=== PATIENT | male | born 1965 | race African-American/Black ===

== ENCOUNTER 2025-04-18 00:33 | Day surgery (SDC) | payer OTHER, SELFPAY ==
[2025-04-12 10:24] VITALS: BMI 36.8
--- OUTSIDE RECORDS SUMMARY | 2025-04-18 00:36 | XMS_ITS | Patient Health Record ---
Author Organization [facility] [employer] Address [address] [address] Care Team Providers Care Business Applications Specialist Name Role Phone Arya Simms Unavailable [phone] Reason For Referral No Information Medications Medication SIG (Take, Route, Frequency, Duration) Notes Start Date End Date Status hydroCHLOROthiazide 50 MG Tablet Oral Active ID Now COVID-19 Kit In Vitro *Reorder fro m Medispan for eRx and Interaction Alerts* Active amLODIPine Besylate 10 MG Tablet Oral Active Social History Social History Additional Details Category Social Info Options Details Migrated Social History Migrated Social History Tobacco Years: Never smoker 03/10/2022 Plan Of Treatment No Information Insurance Providers Payer Name Payer Address Payer Phone Subscriber Number Group Number Insured Name Patient Relationship to Insured Coverage Start Date Coverage End Date [facility] - [employer] [address] [place] [id number] THEODORA MCCLELLAN Self - patient is the insured [facility] - [employer] Management - [employer] [address] [place] [id number] THEODORA MCCLELLAN Self - patient is the insured
--- OUTSIDE RECORDS SUMMARY | 2025-04-18 00:37 | XMS_ITS | Data Portability ---
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 Name Role Phone BIANCA ADLER Primary Care Provider Assessment Encounter Date Assessment Date Assessment LastModified by Organization Details LastModified Time 12/30/2023 12/30/2023 Obesity education continue current therapy obtain cold record obesity education continue current therapy blood pressure controlled follow-up with me in 4 months obtain old records he believes he is up-to-date on screenings and immunizations old records will have to be reviewed by staff ankit Not available 12/31/2023 12:04:34 06/29/2024 06/29/2024 We will continue current therapies blood work is controlled healthy lifestyle care instructions walking 30 minutes 5 days a week at least he will see me back in 4 months we did have a colonoscopy at [facility] we will retrieve that as well as old records he refuses all immunizations Not available 06/30/2024 12:43:17 02/13/2025 02/13/2025 Continue current therapy healthy lifestyle care choices colonoscopies follow up 6 months Not available 02/13/2025 23:17:02 Plan of Treatment Reminders Order Date Submit Date Provider Last Modified By Organization Details Last Modified Time Details Appointments ANY 15 2024 01:15P Herlinda Adler MD Not available Not available Not available Lab PSA, total, serum or plasma 2023 024 [facility], [address], [address], [place], [address], 06/30/2024 08:24:54 CBC w/ auto diff 2023 024 [facility], [address] [place] [address], [address], [place], [address], 06/30/2024 08:24:53 CMP, serum or plasma 2023 024 [facility], [address] [place] [address], [address], [place], [address], 06/30/2024 08:24:52 lipid panel, serum 2023 024 [facility], [address] [place] [address], [address], [place], [address], 06/30/2024 08:24:50 Referral None recorded. Procedures None recorded. Surgeries None recorded. Imaging None recorded. Medication Orders amlodipin e 10 mg tablet 2023 024 [id number] [address], [place], [id number], 12/30/2023 12:42:27 Patient TargetsNo targets recorded. Patient Instructions Encounter Date Encounter Id Patient Instructions Last Modified By Organization Details Last Modified Time 12/30/2023 [id number] A healthy lifestyle: care instructions [email or web address] Not available 12/30/2023 12:42:27 06/29/2024 [id number] A healthy lifestyle: care instructions Not available 06/29/2024 13:34:55 02/13/2025 [id number] A healthy lifestyle: care instructions [email or web address] Not available 02/13/2025 17:56:18 Reason for Referral None Reported. Results Created Date Observation Date Name Description Value Unit Range Abnormal Flag Note LastModifiedBy Organization Detail LastModifiedTime 06/29/2006/30/2024 LIPID PANEL cholesterol, total 157 mg/dL 100-19 9 Not Available [facility] ([facility]) [address], [place], [address], 06/30/2024 08:24:50 06/29/20 24 06/30/2024 LIPID PANEL triglyceride s 92 mg/dL 0-149 Not Available [facility] ([facility]) [address], [place], [address], 06/30/2024 08:24:50 06/29/20 24 06/30/2024 LIPID PANEL HDL cholesterol 52 mg/dL >39 Not Available [facility] ([facility]) [address], [place], [address], 06/30/2024 08:24:50 06/29/20 24 06/30/2024 LIPID PANEL VLDL cholesterol francisco javier 17 mg/dL 5-40 Not Available [facility] ([facility]) [address], [place], [address], 06/30/2024 08:24:50 06/29/20 24 06/30/2024 LIPID PANEL LDL chol calc ([email or web address] 88 mg/dL 0-99 Not Available [facility] ([facility]) [address], [place], [address], 06/30/2024 08:24:50 06/29/20 24 06/30/2024 COMP. METAB OLIC PANEL (14) glucose 97 mg/dL 70-99 Not Available [facility] ([facility]) [address] [place], [address], 06/30/2024 08:24:52 06/29/20 24 06/30/2024 COMP. METAB OLIC PANEL (14) BUN 7 mg/dL 6-24 Not Available [facility] ([facility]) [address] [place], [address], 06/30/2024 08:24:52 06/29/20 24 06/30/2024 COMP. METAB OLIC PANEL (14) creatinine 0.92 mg/dL 0.76-1 .27 Not Available [facility] ([facility]) [address], [place], [address], 06/30/2024 08:24:52 06/29/20 24 06/30/2024 COMP. METAB OLIC PANEL (14) eGFR 96 mL/mi n/1.7 3 >59 Not Available [facility] ([facility]) [address], [place], [address], 06/30/2024 08:24:52 06/29/20 24 06/30/2024 COMP. METAB OLIC PANEL (14) BUN/creatini ne ratio 8 9-20 below low normal Not Available [facility] ([facility]) [address], [place], [address], 06/30/2024 08:24:52 06/29/20 24 06/30/2024 COMP. METAB OLIC PANEL (14) sodium 139 mmol/ L 134-14 4 Not Available [facility] ([facility]) [address], [place], [address], 06/30/2024 08:24:52 06/29/20 24 06/30/2024 COMP. METAB OLIC PANEL (14) potassium 4.1 mmol/ L 3.5-5. 2 Not Available [facility] ([facility]) [address], [place], [address], 06/30/2024 08:24:52 06/29/20 24 06/30/2024 COMP. METAB OLIC PANEL (14) chloride 98 mmol/ L 96-106 Not Available [facility] ([facility]) [address] [place], [address], 06/30/2024 08:24:52 06/29/20 24 06/30/2024 COMP. METAB OLIC PANEL (14) carbon dioxide, total 26 mmol/ L 20-29 Not Available [facility] ([facility]) [address] [place], [address], 06/30/2024 08:24:52 06/29/20 24 06/30/2024 COMP. METAB OLIC PANEL (14) calcium 9.0 mg/dL 8.7-10 .2 Not Available [facility] ([facility]) [address], [place], [address], 06/30/2024 08:24:52 06/29/20 24 06/30/2024 COMP. METAB OLIC PANEL (14) protein, total 7.7 g/dL 6.0-8. 5 Not Available [facility] ([facility]) [address] [place], [address], 06/30/2024 08:24:52 06/29/20 24 06/30/2024 COMP. METAB OLIC PANEL (14) albumin 4.4 g/dL 3.8-4. 9 Not Available [facility] ([facility]) [address], [place], [address], 06/30/2024 08:24:52 06/29/20 24 06/30/2024 COMP. METAB OLIC PANEL (14) globulin, total 3.3 g/dL 1.5-4. 5 Not Available [facility] ([facility]) [address], [place], [address], 06/30/2024 08:24:52 06/29/20 24 06/30/2024 COMP. METAB OLIC PANEL (14) bilirubin, total 0.7 mg/dL 0.0-1. 2 Not Available [facility] ([facility]) [address] [place], [address], 06/30/2024 08:24:52 06/29/20 24 06/30/2024 COMP. METAB OLIC PANEL (14) alkaline phosphatase 93 IU/L 44-121 Not Available [facility] ([facility]) [address] [place], [address], 06/30/2024 08:24:52 06/29/20 24 06/30/2024 COMP. METAB OLIC PANEL (14) AST (SGOT) 28 IU/L 0-40 Not Available [facility] ([facility]) [address] [place], [address], 06/30/2024 08:24:52 06/29/20 24 06/30/2024 COMP. METAB OLIC PANEL (14) ALT (SGPT) 23 IU/L 0-44 Not Available [facility] ([facility]) [address], [place], [address], 06/30/2024 08:24:52 06/29/20 24 06/30/2024 CBC WITH DIFFE RENTI AL/PL ATELE T WBC 6.2 x10e3 /uL 3.4-10 .8 Not Available [facility] ([facility]) [address], [place], [address], 06/30/2024 08:24:53 06/29/20 24 06/30/2024 CBC WITH DIFFE RENTI AL/PL ATELE T RBC 5.37 x10e6 /uL 4.14-5 .80 Not Available [facility] ([facility]) [address], [place], [address], 06/30/2024 08:24:53 06/29/20 24 06/30/2024 CBC WITH DIFFE RENTI AL/PL ATELE T hemoglobin 14.7 g/dL 13.0-1 7.7 Not Available [facility] ([facility]) [address] [place], [address], 06/30/2024 08:24:53 06/29/20 24 06/30/2024 CBC WITH DIFFE RENTI AL/PL ATELE T hematocrit 45.5 % 37.5-5 1.0 Not Available [facility] ([facility]) [address], [place], [address], 06/30/2024 08:24:53 06/29/20 24 06/30/2024 CBC WITH DIFFE RENTI AL/PL ATELE T MCV 85 fL 79-97 Not Available [facility] ([facility]) [address], [place], [address], 06/30/2024 08:24:53 06/29/20 24 06/30/2024 CBC WITH DIFFE RENTI AL/PL ATELE T MCH 27.4 pg 26.6-3 3.0 Not Available [facility] ([facility]) [address], [place], [address], 06/30/2024 08:24:53 06/29/20 24 06/30/2024 CBC WITH DIFFE RENTI AL/PL ATELE T MCHC 32.3 g/dL 31.5-3 5.7 Not Available [facility] ([facility]) [address], [place], [address], 06/30/2024 08:24:53 06/29/20 24 06/30/2024 CBC WITH DIFFE RENTI AL/PL ATELE T RDW 11.8 % 11.6-1 5.4 Not Available [facility] ([facility]) [address], [place], [address], 06/30/2024 08:24:53 06/29/20 24 06/30/2024 CBC WITH DIFFE RENTI AL/PL ATELE T platelets 274 x10e3 /uL 150-45 0 Not Available [facility] ([facility]) [address], [place], [address], 06/30/2024 08:24:53 06/29/20 24 06/30/2024 CBC WITH DIFFE RENTI AL/PL ATELE T neutrophils 50 % notest ab. Not Available [facility] ([facility]) [address], [place], [address], 06/30/2024 08:24:53 06/29/20 24 06/30/2024 CBC WITH DIFFE RENTI AL/PL ATELE T lymphs 40 % notest ab. Not Available [facility] ([facility]) [address], [place], [address], 06/30/2024 08:24:53 06/29/20 24 06/30/2024 CBC WITH DIFFE RENTI AL/PL ATELE T monocytes 7 % notest ab. Not Available [facility] ([facility]) [address], [place], [address], 06/30/2024 08:24:53 06/29/20 24 06/30/2024 CBC WITH DIFFE RENTI AL/PL ATELE T eos 2 % notest ab. Not Available [facility] ([facility]) [address], [place], [address], 06/30/2024 08:24:53 06/29/20 24 06/30/2024 CBC WITH DIFFE RENTI AL/PL ATELE T basos 1 % notest ab. Not Available [facility] ([facility]) [address], [place], [address], 06/30/2024 08:24:53 06/29/20 24 06/30/2024 CBC WITH DIFFE RENTI AL/PL ATELE T neutrophils (absolute) 3.1 x10e3 /uL 1.4-7. 0 Not Available [facility] ([facility]) [address], [place], [address], 06/30/2024 08:24:53 06/29/20 24 06/30/2024 CBC WITH DIFFE RENTI AL/PL ATELE T lymphs (absolute) 2.5 x10e3 /uL 0.7-3. 1 Not Available [facility] ([facility]) [address], [place], [address], 06/30/2024 08:24:53 06/29/20 24 06/30/2024 CBC WITH DIFFE RENTI AL/PL ATELE T monocytes(ab solute) 0.5 x10e3 /uL 0.1-0. 9 Not Available [facility] ([facility]) [address] [place], [address], 06/30/2024 08:24:53 06/29/20 24 06/30/2024 CBC WITH DIFFE RENTI AL/PL ATELE T eos (absolute) 0.1 x10e3 /uL 0.0-0. 4 Not Available [facility] ([facility]) [address] [place], [address], 06/30/2024 08:24:53 06/29/20 24 06/30/2024 CBC WITH DIFFE RENTI AL/PL ATELE T baso (absolute) 0.0 x10e3 /uL 0.0-0. 2 Not Available [facility] ([facility]) [address] [place], [address], 06/30/2024 08:24:53 06/29/20 24 06/30/2024 CBC WITH DIFFE RENTI AL/PL ATELE T immature granulocytes 0 % notest ab. Not Available [facility] ([facility]) [address] [place], [address], 06/30/2024 08:24:53 06/29/20 24 06/30/2024 CBC WITH DIFFE RENTI AL/PL ATELE T immature grans (abs) 0.0 x10e3 /uL 0.0-0. 1 Not Available [facility] ([facility]) [address] [place], [address], 06/30/2024 08:24:53 06/29/20 24 06/30/2024 PROST ATE-S PECIF IC AG prostate specific Ag 1.1 NG/mL 0.0-4. 0 Raffy ECLIA metho dolog y. Accor ding to the Ameri can [employer] iatio n, Serum PSA shoul d decre ase and remai n at undet ectab le level s after radic al prost atect hiwot. The AUA defin es bioch emica l recur rence as an initi al PSA value 0.2 ng/mL or great er follo wed by a subse quent confi rmato ry PSA value 0.2 ng/mL or great er. Value s obtai wood with diffe rent assay metho ds or kits canno t be used inter marie eably . Resul ts canno t be inter prete d as absol patrice evide nce of the prese nce or absen ce of dylan ho se. Not Available [facility] ([facility]) [address], [place], [address], 06/30/2024 08:24:54 01/26/2001/26/2025 CBC W Order ed Manua l Diffe renti al panel - Blood leukocytes [#/volume] in blood by automated count 5.3 text: 3.8 - 10.8 thousa nd/uL Not Available Not Available 02/12/2025 17:45:58 01/26/20 25 01/26/2025 CBC W Order ed Manua l Diffe renti al panel - Blood erythrocytes [#/volume] in blood by automated count 5.06 text: 4.20 - 5.80 millio n/uL Not Available Not Available 02/12/2025 17:45:58 01/26/20 25 01/26/2025 CBC W Order ed Manua l Diffe renti al panel - Blood hemoglobin [mass/volume ] in blood 13.4 g/dL low: 13.2g/ dLhigh : 17.1g/ dL Not Available Not Available 02/12/2025 17:45:58 01/26/20 25 01/26/2025 CBC W Order ed Manua l Diffe renti al panel - Blood hematocrit [volume fraction] of blood by automated count 44.4 % low: 38.5%h igh: 50% Not Available Not Available 02/12/2025 17:45:58 01/26/20 25 01/26/2025 CBC W Order ed Manua l Diffe renti al panel - Blood MCV [entitic mean volume] in red blood cells by automated count 87.7 fL low: 80fLhi gh: 100fL Not Available Not Available 02/12/2025 17:45:58 01/26/20 25 01/26/2025 CBC W Order ed Manua l Diffe renti al panel - Blood MCH [entitic mass] by automated count 26.5 pg low: 27pghi gh: 33pg low Not Available Not Available 02/12/2025 17:45:58 01/26/20 25 01/26/2025 CBC W Order ed Manua l Diffe renti al panel - Blood MCHC [entitic mass/volume] in red blood cells by automated count 30.2 g/dL low: 32g/dL high: 36g/dL low For adult s, a sligh t decre ase in the calcu lated MCHC value (in the range of 30 to 32 g/dL) is most likel y not clini colin signi ficnarda t; lore er, it shoul d be inter prete d with cauti on in corre latio n with other red cell jackie eters and the patie nt's clini francisco javier condi tion. Not Available Not Available 02/12/2025 17:45:58 01/26/20 25 01/26/2025 CBC W Order ed Lauraa l Diffe renti al panel - Blood erythrocyte [distwidth] in red blood cells by automated count 12.7 % low: 11%hig h: 15% Not Available Not Available 02/12/2025 17:45:58 01/26/20 25 01/26/2025 CBC W Order ed Lauraa l Diffe renti al panel - Blood platelets [#/volume] in blood by automated count 147 text: 140 - 400 thousa nd/uL Not Available Not Available 02/12/2025 17:45:58 01/26/20 25 01/26/2025 CBC W Order ed Manua l Diffe renti al panel - Blood platelet [entitic mean volume] in blood by kelle 11.6 fL low: 7.5fLh igh: 12.5fL Not Available Not Available 02/12/2025 17:45:58 01/26/20 25 01/26/2025 CBC W Order ed Manua l Diffe renti al panel - Blood neutrophils [#/volume] in blood by automated count 2343 text: 1,500 - 7,800 cells/ uL Not Available Not Available 02/12/2025 17:45:58 01/26/20 25 01/26/2025 CBC W Order ed Manua l Diffe renti al panel - Blood lymphocytes [#/volume] in blood by automated count 2438 text: 850 - 3,900 cells/ uL Not Available Not Available 02/12/2025 17:45:58 01/26/20 25 01/26/2025 CBC W Order ed Manua l Diffe renti al panel - Blood monocytes [#/volume] in blood by automated count 429 text: 200 - 950 cells/ uL Not Available Not Available 02/12/2025 17:45:58 01/26/20 25 01/26/2025 CBC W Order ed Manua l Diffe renti al panel - Blood eosinophils [#/volume] in blood by automated count 48 text: 15 - 500 cells/ uL Not Available Not Available 02/12/2025 17:45:58 01/26/20 25 01/26/2025 CBC W Order ed Manua l Diffe renti al panel - Blood basophils [#/volume] in blood by automated count 42 text: 0 - 200 cells/ uL Not Available Not Available 02/12/2025 17:45:58 01/26/20 25 01/26/2025 CBC W Order ed Manua l Diffe renti al panel - Blood neutrophils/ leukocytes in blood by automated count 44.2 % Not Available Not Available 01/16 17:45:58 01/26/20 25 01/26/2025 CBC W Order ed Manua l Diffe renti al panel - Blood lymphocytes/ leukocytes in blood by automated count 46 % Not Available Not Available 01/16 17:45:58 01/26/20 25 01/26/2025 CBC W Order ed Manua l Diffe renti al panel - Blood monocytes/le ukocytes in blood by automated count 8.1 % Not Available Not Available 01/16 17:45:58 01/26/20 25 01/26/2025 CBC W Order ed Manua l Diffe renti al panel - Blood eosinophils/ leukocytes in blood by automated count 0.9 % Not Available Not Available 01/16 17:45:58 01/26/20 25 01/26/2025 CBC W Order ed Manua l Diffe renti al panel - Blood basophils/le ukocytes in blood by automated count 0.8 % [facility] [id number] [place] [address] Savi Sindhu Kumar Vo Not Available Not Available 02/12/2025 17:45:58 01/26/20 25 01/26/2025 CBC W Order ed Becky antonio al panel - Blood interpretati on and review of laboratory results Abnorm al Not Available Not Available 17:45:58 01/26/20 25 01/26/2025 Compr ehens sari metab olic 1999 panel - Serum or Plasm a glucose [mass/volume ] in serum or plasma 103 mg/dL low: 65mg/d Lhigh: 99mg/d L high Fasti ng refer ence inter noa For someo ne witho ut known diabe rola, a gluco se value betwe en 100 and 125 mg/dL is consi stent with predi abete s and shoul d be confi rmed with a follo w-up test. Not Available Not Available 02/12/2025 17:45:58 01/26/20 25 01/26/2025 Compr ehens sari metab olic 2000 panel - Serum or Plasm a urea nitrogen [mass/volume ] in serum or plasma 11 mg/dL low: 7mg/dL high: 25mg/d L Not Available Not Available 02/12/2025 17:45:58 01/26/20 25 01/26/2025 Compr ehens sari metab olic 2000 panel - Serum or Plasm a creatinine [mass/volume ] in serum or plasma 0.99 mg/dL low: 0.7mg/ dLhigh : 1.3mg/ dL Not Available Not Available 02/12/2025 17:45:58 01/26/20 25 01/26/2025 Compr ehens sari metab olic 2000 panel - Serum or Plasm a glomerular filtration rate [volume rate/area] in serum, plasma or blood by creatinine-b ased formula (CKD-epi 2020)/1.73 sq M 88 text: > or = 60 mL/min /1.73m 2 Not Available Not Available 02/12/2025 17:45:58 01/26/20 25 01/26/2025 Compr ehens sari metab olic 1999 panel - Serum or Plasm a urea nitrogen/cre atinine [mass ratio] in serum or plasma SEE NOTE: text: (calc) Not Repor cary: BUN and Creat inine are withi n refer ence range . Not Available Not Available 02/12/2025 17:45:58 01/26/20 25 01/26/2025 Compr ehens sari metab olic 1999 panel - Serum or Plasm a sodium [moles/volum e] in serum or plasma 136 mmol/ L low: 135mmo l/Lhig h: 146mmo l/L Not Available Not Available 02/12/2025 17:45:58 01/26/20 25 01/26/2025 Compr ehens sari metab olic 1999 panel - Serum or Plasm a potassium [moles/volum e] in serum or plasma 4 mmol/ L low: 3.5mmo l/Lhig h: 5.3mmo l/L Not Available Not Available 02/12/2025 17:45:58 01/26/20 25 01/26/2025 Compr ehens sari metab olic 2000 panel - Serum or Plasm a chloride [moles/volum e] in serum or plasma 96 mmol/ L low: 98mmol /Lhigh : 110mmo l/L low Not Available Not Available 02/12/2025 17:45:58 01/26/20 25 01/26/2025 Compr ehens sari metab olic 1999 panel - Serum or Plasm a carbon dioxide, total [moles/volum e] in serum or plasma 34 mmol/ L low: 20mmol /Lhigh : 32mmol /L high Not Available Not Available 02/12/2025 17:45:58 01/26/20 25 01/26/2025 Compr ehens sari metab olic 2000 panel - Serum or Plasm a calcium [mass/volume ] in serum or plasma 9.2 mg/dL low: 8.6mg/ dLhigh : 10.3mg /dL Not Available Not Available 02/12/2025 17:45:58 01/26/20 25 01/26/2025 Compr ehens sari metab olic 2000 panel - Serum or Plasm a protein [mass/volume ] in serum or plasma 7.6 g/dL low: 6.1g/d Lhigh: 8.1g/d L Not Available Not Available 02/12/2025 17:45:58 01/26/20 25 01/26/2025 [facility] 1999 panel - Serum or Plasm a albumin [mass/volume ] in serum or plasma 4.3 g/dL low: 3.6g/d Lhigh: 5.1g/d L Not Available Not Available 02/12/2025 17:45:58 01/26/20 25 01/26/2025 [facility] 1999 panel - Serum or Plasm a globulin [mass/volume ] in serum by calculation 3.3 text: 1.9 - 3.7 g/dL (calc) Not Available Not Available 02/12/2025 17:45:58 01/26/20 25 01/26/2025 [facility] 1999 panel - Serum or Plasm a albumin/glob ulin [mass ratio] in serum or plasma 1.3 text: 1.0 - 2.5 (calc) Not Available Not Available 02/12/2025 17:45:58 01/26/20 25 01/26/2025 [facility] 1999 panel - Serum or Plasm a bilirubin.to colette [mass/volume ] in serum or plasma 0.8 mg/dL low: 0.2mg/ dLhigh : 1.2mg/ dL Not Available Not Available 02/12/2025 17:45:58 01/26/20 25 01/26/2025 [facility] 1999 panel - Serum or Plasm a alkaline phosphatase [enzymatic activity/vol ume] in serum or plasma 74 U/L low: 35U/Lh igh: 144U/L Not Available Not Available 02/12/2025 17:45:58 01/26/20 25 01/26/2025 [facility] 1999 panel - Serum or Plasm a aspartate aminotransfe rase [enzymatic activity/vol ume] in serum or plasma 24 U/L low: 10U/Lh igh: 35U/L Not Available Not Available 02/12/2025 17:45:58 01/26/20 25 01/26/2025 Compr ehens sari metab olic 2000 panel - Serum or Plasm a alanine aminotransfe rase [enzymatic activity/vol ume] in serum or plasma 24 U/L low: 9U/Lhi gh: 46U/L [facility] [id number] [place] [address] [facility] Vo Not Available Not Available 02/12/2025 17:45:58 01/26/20 25 01/26/2025 Compr ehens sari metab olic 2000 panel - Serum or Plasm a interpretati on and review of laboratory results Abnorm al Not Available Not Available 17:45:58 01/27/20 25 01/26/2025 Compr ehens sari metab olic 1999 panel - Serum or Plasm a glucose [mass/volume ] in serum or plasma 103 mg/dL low: 65mg/d Lhigh: 99mg/d L high Not Available Not Available 02/12/2025 17:43:45 01/27/20 25 01/26/2025 Compr ehens sari metab olic 2000 panel - Serum or Plasm a urea nitrogen [mass/volume ] in serum or plasma 11 mg/dL low: 7mg/dL high: 25mg/d L Not Available Not Available 02/12/2025 17:43:45 01/27/20 25 01/26/2025 Compr ehens sari metab olic 2000 panel - Serum or Plasm a creatinine [mass/volume ] in serum or plasma 0.99 mg/dL low: 0.7mg/ dLhigh : 1.3mg/ dL Not Available Not Available 02/12/2025 17:43:45 01/27/20 25 01/26/2025 Compr ehens sari metab olic 2000 panel - Serum or Plasm a urea nitrogen/cre atinine [mass ratio] in serum or plasma SEE NOTE: text: see_co mment [Auto mated messa ge] The syste m which gener ated this resul t trans mitte d refer ence range : > OR = 60 mL/mi n/1.7 3m2. The refer ence range was not used to inter pret this resul t as yvonne l/abn ormal . Not Available Not Available 02/12/2025 17:43:45 01/27/20 25 01/26/2025 Compr ehens sari metab olic 1999 panel - Serum or Plasm a sodium [moles/volum e] in serum or plasma 136 mmol/ L low: 135mmo l/Lhig h: 146mmo l/L Not Available Not Available 02/12/2025 17:43:45 01/27/20 25 01/26/2025 Compr ehens sari metab olic 1999 panel - Serum or Plasm a potassium [moles/volum e] in serum or plasma 4 mmol/ L low: 3.5mmo l/Lhig h: 5.3mmo l/L Not Available Not Available 02/12/2025 17:43:45 01/27/20 25 01/26/2025 Compr ehens sari metab olic 1999 panel - Serum or Plasm a chloride [moles/volum e] in serum or plasma 96 mmol/ L low: 98mmol /Lhigh : 110mmo l/L low Not Available Not Available 02/12/2025 17:43:45 01/27/20 25 01/26/2025 Compr ehens sari metab olic 1999 panel - Serum or Plasm a carbon dioxide, total [moles/volum e] in serum or plasma 34 mmol/ L low: 20mmol /Lhigh : 32mmol /L high Not Available Not Available 02/12/2025 17:43:45 01/27/20 25 01/26/2025 Compr ens sari metab olic 1999 panel - Serum or Plasm a calcium [mass/volume ] in serum or plasma 9.2 mg/dL low: 8.6mg/ dLhigh : 10.3mg /dL Not Available Not Available 02/12/2025 17:43:45 01/27/20 25 01/26/2025 Compr ehens sari metab olic 1999 panel - Serum or Plasm a protein [mass/volume ] in serum or plasma 7.6 g/dL low: 6.1g/d Lhigh: 8.1g/d L Not Available Not Available 02/12/2025 17:43:45 01/27/20 25 01/26/2025 Compr ehens sari metab olic 1999 panel - Serum or Plasm a albumin [mass/volume ] in serum or plasma 4.3 g/dL low: 3.6g/d Lhigh: 5.1g/d L Not Available Not Available 02/12/2025 17:43:45 01/27/20 25 01/26/[facility] - Serum or Plasm a bilirubin.to colette [mass/volume ] in serum or plasma 0.8 mg/dL low: 0.2mg/ dLhigh : 1.2mg/ dL Not Available Not Available 02/12/2025 17:43:45 01/27/20 25 01/26/2025 [facility] - Serum or Plasm a alkaline phosphatase [enzymatic activity/vol ume] in serum or plasma 74 U/L low: 35U/Lh igh: 144U/L Not Available Not Available 02/12/2025 17:43:45 01/27/20 25 01/26/2025 [facility] - Serum or Plasm a aspartate aminotransfe rase [enzymatic activity/vol ume] in serum or plasma 24 U/L low: 10U/Lh igh: 35U/L Not Available Not Available 02/12/2025 17:43:45 01/27/20 25 01/26/2025 [facility] ehens sari metab olic 2000 panel - Serum or Plasm a alanine aminotransfe rase [enzymatic activity/vol ume] in serum or plasma 24 U/L low: 9U/Lhi gh: 46U/L Not Available Not Available 02/12/2025 17:43:45 01/27/20 25 01/26/2025 [facility] - Serum or Plasm a interpretati on and review of laboratory results Abnorm al Not Available Not Available 17:43:45 01/27/20 25 01/26/2025 CBC W Order ed Becky antonio al panel - Blood hemoglobin [mass/volume ] in blood 13.4 g/dL low: 13.2g/ dLhigh : 17.1g/ dL Not Available Not Available 02/12/2025 17:43:46 01/27/20 25 01/26/2025 CBC W Order ed Becky antonio al panel - Blood hematocrit [volume fraction] of blood by automated count 44.4 % low: 38.5%h igh: 50% Not Available Not Available 02/12/2025 17:43:46 01/27/20 25 01/26/2025 CBC W Order ed Manua l Diffe renti al panel - Blood MCV [entitic mean volume] in red blood cells by automated count 87.7 fL low: 80fLhi gh: 100fL Not Available Not Available 02/12/2025 17:43:46 01/27/20 25 01/26/2025 CBC W Order ed Manua l Diffe renti al panel - Blood MCH [entitic mass] by automated count 26.5 pg low: 27pghi gh: 33pg low Not Available Not Available 02/12/2025 17:43:46 01/27/20 25 01/26/2025 CBC W Order ed Manua l Diffe renti al panel - Blood MCHC [entitic mass/volume] in red blood cells by automated count 30.2 g/dL low: 32g/dL high: 36g/dL low Not Available Not Available 02/12/2025 17:43:46 01/27/20 25 01/26/2025 CBC W Order ed Manua l Diffe renti al panel - Blood erythrocyte [distwidth] in red blood cells by automated count 12.7 % low: 11%hig h: 15% Not Available Not Available 02/12/2025 17:43:46 01/27/20 25 01/26/2025 CBC W Order ed Manua l Diffe renti al panel - Blood platelet [entitic mean volume] in blood by kelle 11.6 fL low: 7.5fLh igh: 12.5fL Not Available Not Available 02/12/2025 17:43:46 01/27/20 25 01/26/2025 CBC W Order ed Manua l Diffe renti al panel - Blood neutrophils/ leukocytes in blood by automated count 44.2 % Not Available Not Available 01/16 17:43:46 01/27/20 25 01/26/2025 CBC W Order ed Manua l Diffe renti al panel - Blood lymphocytes/ leukocytes in blood by automated count 46 % Not Available Not Available 01/16 17:43:46 01/27/20 25 01/26/2025 CBC W Order ed Manua l Diffe renti al panel - Blood monocytes/le ukocytes in blood by automated count 8.1 % Not Available Not Available 01/16 17:43:46 01/27/20 25 01/26/2025 CBC W Order ed Becky antonio al panel - Blood eosinophils/ leukocytes in blood by automated count 0.9 % Not Available Not Available 01/16 17:43:46 01/27/20 25 01/26/2025 CBC W Order ed Lauraa jazz Marroquine marisela al panel - Blood basophils/le ukocytes in blood by automated count 0.8 % Not Available Not Available 01/16 17:43:46 01/27/20 25 01/26/2025 CBC W Order ed Lauraa jazz Marroquine kellenti al panel - Blood interpretati on and review of laboratory results Abnorm al Not Available Not Available 17:43:46 Result Notes None recorded. Problems Name Problem SNOMED Code Status Onset Date Resolution Date Notes Provider Name and Address Organization Details Recorded Time Essential hypertensio n 48919520 Active 2023 Cindy Otero MA null, [place] - [facility] 4 12:25:06 Obesity 095956347 Active 2023 Bianca Adler MD Attn: Roslyn munguia,[address] [place], [address], [place] - [facility] 4 12:04:34 Hyperlipide katie 74663084 Active 2023 Bianca Adler MD Attn: Roslyn munguia,[address] [place], [address], [place] [facility] 4 12:04:35 HIV screening declined 9159751646953 00 Active 2023 Bianca Adler MD Attn: Roslyn munguia,[address] [place], [address], [place] [facility] 4 12:43:06 Tetanus vaccination declined by patient 629366452 Active 2023 Bianca Adler MD Attn: Roslyn munguia,[address] [place], [address], [place] - [facility] 4 12:43:07 Pneumococca l vaccination declined 433985737 Active 2023 Bianca Adler MD Attn: Roslyn munguia,[address] [facility], [place], [address], [facility] - [facility] 4 12:43:07 SARS-CoV-2 vaccination declined 9423999270 Active 2023 Bianca Adler MD Attn: Roslyn munguia,[address] [facility], [place], [address], [facility] - [facility] 4 12:43:08 Influenza vaccination declined 733012000 Active 2023 Bianca Adler MD Attn: Roslyn munguia,[address] [facility], [place], [address], [facility] - [facility] 4 12:43:11 Problem Notes None recorded. Procedures Surgical History Date Name Laterality Status Provider Name and Address Organization Details Recorded Time Pacemaker completed Agata Duarte MA [place] - [facility] 12/30/2023 11:50:21 Imaging Results None recorded. Procedure Notes None recorded. Medical Equipment None Reported. Allergies No known drug allergies Medications Name Sig Start Date Stop Date Status Note LastModified by Organization Details LastModified Time cyclobenzapr ine 10 mg tablet TAKE 1 TABLET BY MOUTH EVERY 8 HOURS NEEDED 12/29 completed Not Available Not Available Not Available amoxicillin 500 mg capsule TAKE 1 CAPSULE BY MOUTH THREE TIMES DAILY FOR 7 DAYS 12/29 completed Not Available Not Available Not Available atorvastatin 10 mg tablet TAKE 1 TABLET BY MOUTH EVERY DAY active Not Available Not Available No t Available azithromycin 250 mg tablet TAKE 2 TABLETS (500 MG) BY ORAL ROUTE ONCE DAILY FOR 1 DAY THEN 1 TABLET (250 MG) BY ORAL ROUTE ONCE DAILY FOR 4 DAYS 06/29 completed Not Available Not Available Not Available hydrochlorot hiazide 50 mg tablet Take 1 tablet every day by oral route. active Not Available Not Available No t Available tramadol 50 mg tablet TAKE 1 TABLET BY MOUTH EVERY 6 HOURS NEEDED 12/29 completed Not Available Not Available Not Available amlodipine 10 mg tablet Take 1 tablet every day by oral route. 2024 active Not Available Not Available Not Avai lable ibuprofen 600 mg tablet TAKE 1 TABLET BY MOUTH EVERY 6 HOURS NEEDED FOR PAIN CONTROL WITH FOOD 12/29 completed Not Available Not Available Not Available naproxen 500 mg tablet TAKE 1 TABLET BY MOUTH TWICE DAILY WITH FOOD 12/29 completed Not Available Not Available Not Available multivitamin 2 Tablets Daily active Not Available Not Available No t Available Vitals Date Recorded Body height Body mass index (BMI) Body weight Heart rate Oxygen saturation Oxygen saturation in Arterial blood by Pulse oximetry Systolic And Diastolic Provider Name and Address Organization Details Last Updated DateTime 4 180.34 cm 36.4 kg/m2 970102. 89 g 84 /min 97 % 97 % 134/82 mm[Hg] Agata Duarte MA [facility] 4 11:49:16 Date Recorded Body height Body mass index (BMI) Body weight Heart rate Oxygen saturation Oxygen saturation in Arterial blood by Pulse oximetry Systolic And Diastolic Provider Name and Address Organization Details Last Updated DateTime 5 180.34 cm 35.6 kg/m2 970974. 49 g 61 /min 97 % 97 % 130/68 mm[Hg] [facility] 5 14:08:33 Date Recorded Body height Body mass index (BMI) Body weight Heart rate Oxygen saturation Oxygen saturation in Arterial blood by Pulse oximetry Systolic And Diastolic Provider Name and Address Organization Details Last Updated DateTime 4 180.34 cm 36.8 kg/m2 473481. 39 g 82 /min 95 % 95 % 120/82 mm[Hg] Lizz Villegas [facility] 4 11:52:44 Social History Question Answer Notes LastModified by Organizat ion Details LastModified Time Tobacco Smoking Status Never Smoker Agata Duarte MA [facility] 12/30/2023 11:45:31 Do You Have An Advance Directive? No Information n ot available 06/29/2024 Are You Blind Or Do You Have Difficulty Seeing? No Information n ot available 12/30/2023 In The 14 Days Before Symptom Onset, Have You Had Close Contact With A Laboratory-confirm ed COVID-19 While That Case Was Ill? No Information n ot available 06/29/2024 In The 14 Days Before Symptom Onset, Have You Had Close Contact With A Person Who Is Under Investigation For COVID-19 While That Person Was Ill? No Information not available 06/29/2024 Have You Been To An Area Known To Be High Risk For COVID-19? No Information not available 06/29/2024 Are You Deaf Or Do You Have Serious Difficulty Hearing? No Information not available 12/30/2023 Are There Any Guns Present In Your Home? No Information not available 06/29/2024 What Was The Date Of Your Most Recent Tobacco Screening? 02/13/2025 Information not available 02/13/2025 What Is Your Relationship Status? Information not available 12/30/2023 Do You Use Your Seat Belt Or Car Seat Routinely? Yes Information not available 06/29/2024 Do You Have Smoke And Carbon Monoxide Detectors In Your Home? Yes Information not available 06/29/2024 Do You Use Sunscreen Routinely? No Information not available 06/29/2024 Has Tobacco Cessation Counseling Been Provided? No Information not available 02/13/2025 Sex: Male Functional Status Question Answer Note LastModified by Organizat ion Details LastModified Time Do you use any illicit or recreational drugs? No Information not available 06/29/2024 Do you or have you ever used any other forms of tobacco or nicotine? No Information not available 02/13/2025 What is your level of alcohol consumption? None Information not available 12/30/2023 Are you able to care for yourself independently? Yes Information not available 12/30/2023 Mental Status None recorded. Family History Relationship Description Onset Age of this Age Resolved Age Notes LastModified by Organization Details LastModified Time Father Diabetes mellitus [email or web address] Not available 2023 11:49:50 Mother Heart disease [email or web address] Not available 2023 11:49:56 Medical History Condition Response High Blood Pressure Y High Cholesterol Y Immunizations Vaccine Type Date Status Note Provider Nam e and Address Organization Details Recorded Time COVID-19, mRNA, LNP-S, PF, 100 mcg/0.5mL dose or 50 mcg/0.25mL dose 02/08/2021 completed Cindy Otero [place] null, [place] [facility] 12/30/2023 12:25:16 COVID-19, mRNA, LNP-S, PF, 100 mcg/0.5mL dose or 50 mcg/0.25mL dose 03/08/2021 completed Cindy Otero MA [place], [place] - [facility] 12/30/2023 12:25:16 Past Encounters Encounter ID Performer Location Encounter Start Date Encounter Closed Date Diagnosis/Indication Diagnosis SNOMED-CT Code Diagnosis ICD10 Code Diagnosis IMO Codes Diagnosis Note [id number] Bianca Adler MD [facility] (Adult Med) [address] [place] [id number] 12/30/2023 11:28:32 12/30/2023 12:39:27 Essential hypertension 84357411 I10 Obesity 885089240 E66.8 Hyperlipidemia 09978030 E78.5 [id number] Bianca Adler MD [facility] (Adult Med) [address] [place] [phone] 06/29/2024 11:30:49 06/29/2024 12:33:43 Body mass index 30+ - obesity 604416431 Z68.36 Obesity 739171478 E66.9 Hyperlipidemia 75309207 E78.5 Essential hypertension 69014055 I10 Screening for malignant neoplasm of prostate 308231859 Z12.5 Influenza vaccination declined 270288430 Z28.21 SARS-CoV-2 vaccination declined 3536810884 Z28.21 Pneumococc al vaccination declined 866163655 Z28.21 Tetanus va ccination declined by patient 188672314 Z28.21 HIV screen ing declined 2620028737 87086 Z53.20 [id number] Bianca Adler MD [facility] (Adult Med) [address] [place] [id number] 02/13/2025 13:44:54 02/13/2025 14:32:22 Body mass index 30+ - obesity 648525277 Z68.35 919963 Obese class II 029182119 1 07642 E66.812 E66.3 3582135815 Essential hypertension 99976709 I10 Health Concerns Section Related Observation LastModified by Organization Detai ls LastModified Time None Recorded Concern Status LastModified by Organization Details LastModified Time None Recorded Advance Directives Directive N: Payers Insurance Date Sequence Insurance Name Policy Number Policy Mott Covered Member ID Mott Member ID Guarantor Name 02/14/2025 1 [facility]-[employer] - [employer] - [employer] [id number] Stiven Marshall [id number] Stiven Marshall 02/13/2025 1 [facility] - [employer]NA [id number] Stiven Marshall [id number] Stiven Marshall 02/13/2025 2 [employer] - [employer] (PPO) [id number] Stiven Marshall [id number] Stiven Marshall Notes Date Note Type Note Provider Name and Address Organization Details Recorded Time 4 text/html Follow-up of medical problems hypertension no headache or dizziness overweight he needs to be on a diet his diet is poor. Dyslipidemia diet before taking his medication without side effects Bianca Adler MD Attn: [address] [place], [address], [facility] 12/31/2023 12:04:56 4 text/html follow up of medical problems hypertension blood pressure 120/82 he feels good. Dyslipidemia is taking his atorvastatin but he is not really do anything to stay active. He refuses immunizations today. Obesity is not doing anything to lose weight consistently. Bianca Adler MD Attn: [address] [place], [address], [facility] 06/30/2024 12:43:34 5 text/html Hypertension controlHyperlipidemia blood work from work we will be entered in chart looks goodObesity could trim some lb ROMY Spence, [place] - [facility] 02/18/2025 16:35:56
--- OUTSIDE RECORDS SUMMARY | 2025-04-18 00:37 | XMS_ITS | Clinical Summary ---
Author Organization Address [address] [place] [address] Care Team Providers Care Sample Box Maker Name Role Phone Unavailable Primary Care Provider Unavailabl e Social History Tobacco Use Types Packs/Day Years Used Date Smoking Tobacco: Never Assessed Sex and Gender Information Value Date Recorded Sex Assigned at Not on file Legal Sex Male 3:01 PM [employer] Gender Identity Not on file Sexual Orientation Not on file Plan of Treatment Health Maintenance Due Date Last Done Comments Hepatitis C Virus (HCV) Screening 1965 TdaP Immunization 1965 Hepatitis B Immunization (1 of 3 - 19+ 3-dose series) 1984 Cologuard 2010 Colonoscopy 2010 Colorectal Cancer Screening 2010 Immunochemical Fecal Occult Blood 2010 Pneumococcal Immunization (5 0+ years) (1 of 1 - PCV) 2015 Zoster Immunization (1 of 2) 2015 Influenza Immunization (#1) 2025 SARS-COV-2 Immunization (1 - season) 2025 Respiratory Syncytial Virus (RSV) Immunization (Adult) (1 - 1-dose 75+ series) 2040 Human Papillomavirus (HPV) Immunization Aged Out No longer eligible b ased on patient's age to complete this topic Meningococcal Immunization (ACWY) Aged Out No longer eligible based on patient's age to complete this topic Rotavirus Immunization Aged Out No lo nger eligible based on patient's age to complete this topic Insurance [employer] on file
--- OUTSIDE RECORDS SUMMARY | 2025-04-18 00:37 | XMS_ITS | Clinical Summary ---
Author Organization [facility] [employer] [place] Address [address] [place] [address] [place] [address] Care Team Providers Care Appliance Tester Name Role Phone Lan Adler MD Primary Care Provider [phone] Allergies No known active allergies Medications amLODIPine (NORVASC) 10 mg tablet Take 10 mg by mouth daily. Active hydroCHLOROthia zide 50 mg tablet Take 50 mg by mouth daily. Active fluticasone propionate (FLONASE) 50 mcg/spray [place], Suspension nasal inhalerIndicati ons:Hay fever Administer 2 Sprays in each nostril daily at bedtime. 16 Gram 2 Active atorvastatin (LIPITOR) 10 mg tablet Take 10 mg by mouth daily. 4 Active azithromycin (ZITHROMAX) 250 mg tablet TAKE 2 TABLETS BY MOUTH FOR 1 DAY THEN TAKE 1 TABLET BY MOUTH DAILY FOR 4 DAYS Active Active Problems Problem Noted Date Diagnosed Date Hyperlipidemia LDL goal <100 04/17/2024 Severe obesity (BMI 35.0-39.9) with comorbidity 04/17/2024 Benign essential hypertension 11/25/2021 Anxiety 10/21/2021 Encounters Date Type Department Care Team Description 01/28/2025 Results Follow-Up [facility] [address] [place] [address] Anali Duran, ANP TSH, LIPID PANEL, COMPREHENSIVE METABOLIC PANEL, CBC WITH DIFFERENTIAL 01/25/2025 8:20 AM CDT Office Visit [facility] [address] [place] [place] [address] Screening for condition (Primary Dx) from Last 3 Months Immunizations Immunization Administration Dates Next Due INFLUENZA VACCINE QUADRIVALENT 6 MOS UP IM 04/18 Family History Medical History Relation Name Comments Diabetes Father Hypertension Mother Relation Name Status Comments Father Alive Mother Alive Social History Tobacco Use Types Packs/Day Years Used Date Smoking Tobacco: Never Smokeless Tobacco: Never Tobacco Cessation:Counseling Given: Not Answered Alcohol Use Standard Drinks/Week Comments Never 0 (1 standard drink = 0.6 oz pur e alcohol) Sex and Gender Information Value Date Recorded Sex Assigned at Not on file Legal Sex Male 12:26 PM CDT Gender Identity Not on file Sexual Orientation Not on file Last Filed Vital Signs Vital Sign Reading Time Taken Comments Blood Pressure 130/82 01/25/2025 8:20 AM CDT Pulse 95 04/17/2024 1:52 PM CDT Temperature 37 C (98.6 F) 04/17/2024 1:52 PM CDT Respiratory Rate 18 04/17/2024 1:52 PM CDT Oxygen Saturation 95% 04/17/2024 1:52 PM CDT Inhaled Oxygen Concentration - - Weight 116.6 kg (257 lb) 01/25/2025 8:20 AM CDT Height 180.3 cm (5' 11) 01/25/2025 8:20 AM CDT Body Mass Index 35.84 01/25/2025 8:20 AM CDT Plan of Treatment Health Maintenance Due Date Last Done Comments Pre-Diabetes and Diabetes Screening 1965 DTAP/TDAP/TD VACCINES (1 - Tdap) 1984 HEPATITIS B VACCINES (1 of 3 - 19+ 3-dose series) 04/18 COLORECTAL SCREENING 2010 Colorectal Cancer Screening 2010 FIT-DNA Q 3 years 2010 FIT/FOBT Q 1 year 2010 Flex Sig/CT Colonography Q 5 years 2010 ZOSTER VACCINE (1 of 2) 2015 INFLUENZA VACCINE (#1) 2025 04/18/2019 Procedures Procedure Name Priority Date/Time Associated Diagnosis Comments CBC WITH DIFFERENTIAL Routine 01/25/2025 8:01 AM CDT Screening for condition COMPREHENSIVE METABOLIC PANEL Routine 01/25/2025 8:01 AM CDT Screening for condition LIPID PANEL Routine 01/25/2025 8:01 AM CDT Screening for condition TSH Routine 01/25/2025 8:01 AM CDT Screening for condition from Last 3 Months Results * (ABNORMAL) CBC WITH DIFFERENTIAL (01/25/2025 8:01 AM CDT) [facility] WBC 5.3 3.8 - 10.8 Thousand/ uL [facility] RBC 5.06 4.20 - 5.80 Million/u L [facility] HEMOGLOBIN 13.4 13.2 - 17.1 g/dL [facility] HEMATOCRIT 44.4 38.5 - 50.0 % [facility] MCV 87.7 80.0 - 100.0 fL [facility] MCH 26.5(L) 27.0 - 33.0 pg [facility] MCHC 30.2(L) 32.0 - 36.0 g/dL [facility] Comment: For adults, a slight decrease in the calculated MCHC value (in the range of 30 to 32 g/dL) is most likely not clinically significant; however, it should be interpreted with caution in correlation with other red cell parameters and the patient's clinical condition. RDW 12.7 11.0 - 15.0 % [facility] PLATELETS 147 140 - 400 Thousand/ uL [facility] MPV 11.6 7.5 - 12.5 fL [facility] NEUTROPHIL ABSOLUTE 2,343 1,500 - 7,800 cells/uL [facility] LYMPHOCYTE ABSOLUTE 2,438 850 - 3,900 cells/uL [facility] MONOCYTE ABSOLUTE 429 200 - 950 cells/uL [facility] EOSINOPHIL ABSOLUTE 48 15 - 500 cells/uL [facility] BASOPHILS ABSOLUTE 42 0 - 200 cells/uL [facility] NEUTROPHIL 44.2 % [facility] LYMPHOCYTES 46.0 % [facility] MONOCYTE 8.1 % [facility] EOSINOPHILS 0.9 % [facility] BASOPHILS 0.8 % [facility] Comment: Test Performed at: [place] [address] [place] [address] SaviSindhu Jean Blood 01/25/2025 8:01 AM CDT 01/26/2025 3:31 AM CDT Anali Duran ANP HEMATOLOGY ORDERABLES Final Result [facility] [phone] [place] [address] [place] [address] * TSH (01/25/2025 8:01 AM CDT) Pathologist [facility] TSH 2.56 0.40 - 4.50 mIU/L [facility] ElzaMichael Rosario Comment: Test Performed at: [place] [address] [place] [address] [facility] Blood 01/25/2025 8:01 AM CDT 01/26/2025 3:31 AM CDT Anali Duran ANP CHEMISTRY ORDERABLES Final R esult Performing Organization Address City/[facility]/ZIP Code Phone Number [facility] [phone] [place] [address] [place] [address] * LIPID PANEL (01/25/2025 8:01 AM CDT) CHOLESTEROL 163 <200 mg/dL [facility] digitalboxMichael abdiaziz Rosario HDL 56 > OR = 40 mg/dL [facility] TRIGLYCERIDE 90 <150 mg/dL [facility] digitalboxMichael freed [place] LDL CALCULATED 89 mg/dL (calc) [facility] abdiaziz Rosario Comment: Reference range: <100 Desirable range <100 mg/dL for primary prevention; <70 mg/dL for patients with CHD or diabetic patients with > or = 2 CHD risk factors. LDL-C is now calculated using the Bhavesh calculation, which is a validated novel method providing better accuracy than the Friedewald equation in the estimation of LDL-C. Renny ODEN et al. RONALD. 2013;310(19): 5299-4629 (http://education.GTRAN/faq/QFB616) CHOL/HDL RATIO 2.9 <5.0 (calc) [facility] NON-HDL CHOLESTEROL 107 <130 mg/dL (calc) [facility] Comment: For patients with diabetes plus 1 major ASCVD risk factor, treating to a non-HDL-C goal of <100 mg/dL (LDL-C of <70 mg/dL) is considered a therapeutic option. Test Performed at: [place] [address] [address] SaviЕленаelías [facility] Blood 01/25/2025 8:01 AM CDT 01/26/2025 3:31 AM CDT us Anali Duran [facility] CHEMISTRY ORDERABLES Final R esult [facility] [phone] [place] [address] [address] [address] * (ABNORMAL) COMPREHENSIVE METABOLIC PANEL (01/25/2025 8:01 AM CDT) GLUCOSE 103(H) 65 - 99 mg/dL [facility] Comment: Fasting reference interval For someone without known diabetes, a glucose value between 100 and 125 mg/dL is consistent with prediabetes and should be confirmed with a follow-up test. BUN 11 7 - 25 mg/dL [facility] CREATININE 0.99 0.70 - 1.30 mg/dL [facility] Travis [facility] GFR 88 > OR = 60 mL/min/1. 73m2 [facility] BUN/CREAT RATIO SEE NOTE: 6 - 22 (calc) [facility] Comment: Not Reported: BUN and Creatinine are within reference range. SODIUM 136 135 - 146 mmol/L [facility] POTASSIUM 4.0 3.5 - 5.3 mmol/L [facility] CHLORIDE 96(L) 98 - 110 mmol/L [facility] CO2 34(H) 20 - 32 mmol/L [facility] CALCIUM 9.2 8.6 - 10.3 mg/dL [facility] TOTAL PROTEIN 7.6 6.1 - 8.1 g/dL [facility]iz [facility] ALBUMIN 4.3 3.6 - 5.1 g/dL [facility] GLOBULIN 3.3 1.9 - 3.7 g/dL (calc) [facility] ALBUMIN/GLOBULIN RATIO 1.3 1.0 - 2.5 (calc) [facility] BILIRUBIN TOTAL 0.8 0.2 - 1.2 mg/dL [facility] ALKALINE PHOSPHATASE 74 35 - 144 U/L [facility] AST 24 10 - 35 U/L [facility] ALT 24 9 - 46 U/L [facility] Comment: Test Performed at: [place] [address] [address] [address] Sully Jean Blood 01/25/2025 8:01 AM CDT 01/26/2025 3:31 AM CDT us Anali Duran ANP CHEMISTRY ORDERABLES Final R esult [facility] [phone] [place] [address] [address] [id number] from Last 3 Months Insurance [facility] OPEN ACCESS * Guarantor: [employer] Account Type Relation to Patient Date of Phone Billing Address Corporate Employer ATTN: [employer] [address] [address] Care Teams Appliance Tester Relationship Specialty Start Date End Date Lan Adler MD [address] [place] [address] PCP - General Internal Medicine 11/03/22
--- NOTE | 2025-04-18 07:19 | WPDANESEPPF ---
Anes - Initial Pre Proc Eval Procedure: Operation Date: 04/18/25 12:30 Proposed Procedures p Screening Colonoscopy - Manny Paulson MD Date/Time: 04/18/25 07:19 Surgeon: Manny Paulson MD Pre Op Diagnosis: Encounter for screening for malignant neoplasm of Patient Data Age: 59 Gender: M Height: 1.8 m Weight: 119.8 kg Allergies Allergy/AdvReac Type Severity Reaction Status Date / Time No Known Allergies Allergy Verified 04/18/25 10:25 Home Medications ?Medication ?Instructions ?Recorded ?Confirmed ?Type amlodipine 10 mg tablet 10 mg PO DAILY 04/12/25 04/18/25 History atorvastatin 10 mg tablet 10 mg PO QPM 04/12/25 04/18/25 History hydrochlorothiazide 12.5 mg capsule 10 mg PO DAILY 04/12/25 04/18/25 History Patient hx anesthesia problems: none Family hx anesthesia problems: none Results Review: All pre-operative results and documents have been reviewed as part of the pre-operative evaluation. [facility] Past Medical History Medical History (Updated 04/18/25 @ 09:33 by Shadi Rubin DO) Hyperlipidemia Hypertension Social History Social History Smoking status: Never smoker Living arrangements: with family Additional living arrangements comments: with sp Anes - Eval Final PreProcedure Day of Procedure 04/18/25 07:19 Patient weight: obese Heart: regular rate and rhythm Lungs: clear to auscultation Airway: Mallampati scale class II Neurological: alert and oriented Last oral intake: >/= 8 hours ASA classification: III Emergent: no Anesthetic plan: proceed Anesthesia type and monitoring: general GIVS and standard monitoring Results Review: All pre-operative results and documents have been reviewed as part of the pre-operative evaluation. Informed Consent: The patient's anesthetic plan and its attendant risks and benefits were discussed with the patient/family/POA. Questions were solicited and answers provided to the satisfaction of the patient/family/POA.
[2025-04-18 10:18] VITALS: BP 153/90; PULSE 91; RESP 16; TEMP 36.5; O2SAT 98; BMI 35.1
[2025-04-18] MEDS: LACTATED RINGERS 1,000 ML 150 ML IV CONT (11:08)
--- NOTE | 2025-04-18 11:14 | PM.HPGS ---
History of Present Illness History of Present Illness Consent: Risks, benefits, and alternatives have been discussed and questions answered. Patient agrees to proceed with procedure. Chief complaint: Encounter for screening for malignant neoplasm of Narrative: Stiven Marshall Jr. is a 59 year old male here for screening colonoscopy, last one about 8 years ago Review of Systems Review of Systems: All systems reviewed & are unremarkable except as noted in HPI and below PMFSH Past Medical History Medical History (Updated 04/18/25 @ 11:15 by Manny Paulson MD) Colon cancer screening Hyperlipidemia Hypertension Social History Social History Smoking status: Never smoker Living arrangements: with family Additional living arrangements comments: with sp Meds Home Medications and Allergies Home Medications ?Medication ?Instructions ?Recorded ?Confirmed ?Type amlodipine 10 mg tablet 10 mg PO DAILY 04/12/25 04/18/25 History atorvastatin 10 mg tablet 10 mg PO QPM 04/12/25 04/18/25 History hydrochlorothiazide 12.5 mg capsule 10 mg PO DAILY 04/12/25 04/18/25 History Allergies Allergy/AdvReac Type Severity Reaction Status Date / Time No Known Allergies Allergy Verified 04/18/25 10:25 Vital Signs Vital Signs - 24 hr 04/18/25 10:18 Temperature 97.7 F Pulse Rate 91 Respiratory Rate 16 Blood Pressure 153/90 H Pulse Oximetry 98 Oxygen Delivery Room Air Exam Const: General: comfortable and no acute distress HENMT: Face/Nose/Sinus: Normal nares present Eyes: General: appearance normal, both eyes and all related structures Resp: Auscultation: clear to auscultation bilaterally Cardio: Rate: regular rate Rhythm: regular rhythm GI: Inspection: non-distended GI Palp: Yes Soft to palpation Skin: General skin exam: normal color Extrem: General: normal to inspection Psych: Mental Status: mental status grossly normal Assessment and Plan Assessment and plan (1) Colon cancer screening: Code(s): Z12.11 - Encounter for screening for malignant neoplasm of colon Status: Acute Assessment and Plan: colonoscopy
[2025-04-18 11:28] VITALS: BP 122/70; PULSE 85; RESP 15; O2SAT 98
[2025-04-18 11:38] VITALS: BP 128/75; PULSE 79; RESP 14; O2SAT 99
[2025-04-18 11:48] VITALS: BP 147/81; PULSE 88; RESP 16; O2SAT 100
== END 2025-04-18 11:58 | disposition home or self-care (01) ==
PROVIDERS: PCP Internal Medicine; Referring Provider Internal Medicine; Visit Provider Internal Medicine Gastroenterology
PROC: 0DJD8ZZ Inspection of Lower Intestinal Tract, Via Natural or Artificial Opening Endoscopic (ICD-10-PCS; CPT 45378; principal; 2025-04-18 12:30)
DX: Z12.11 Encounter for screening for malignant neoplasm of colon (principal); K64.8 Other hemorrhoids; K57.30 Diverticulosis of large intestine without perforation or abscess without bleeding; E78.5 Hyperlipidemia, unspecified; I10 Essential (primary) hypertension; E66.9 Obesity, unspecified; Z68.35 Body mass index [BMI] 35.0-35.9, adult
CPT/HCPCS: 45378; J2704; J7120